=== PATIENT | female | born 1990 | race Caucasian/White ===

== ENCOUNTER 2016-10-30 16:46 | Emergency (ER) | payer SELFPAY ==
[~2016-10-30] VITALS: Ht 160 cm; Wt 100.2 kg
[2016-10-30 18:00] VITALS: BP 124/70
[2016-10-30 18:21] LABS: NEG OBC UR NEG; POS OBC UR POS
[2016-10-30 18:24] LABS: BILIRUBIN,URINE SMALL (NEG); GLUCOSE,URINE NEGATIVE (NEG); NITRITE,URINE NEGATIVE (NEG); PH,URINE 5.5; PROTEIN,URINE NEGATIVE (NEG-TRACE)
[2016-10-30 18:41] LABS: BACTERIA,URINE FEW /HPF (0-FEW); RBC,URINE 0 /HPF (0-2); SQUAMOUS EPITHELIAL CELL,UR MOD /LPF; WBC,URINE OCC /HPF (0-4)
--- NOTE | 2016-10-30 19:13 | RAD ---
PROCEDURE Ob ultrasound. HISTORY Pelvic pain. Cough and congestion. TECHNIQUE Transabdominal OB ultrasound was performed. COMPARISON None for this . FINDINGS Single live intrauterine is noted with heart tones of 152 beats per minute. Estimated gestational age by ultrasound is 14 weeks 1 day for an BREANNE by ultrasound of April 29, 2017. BREANNE by LMP is May 15, 2017. Biparietal diameter measures 2.53 centimeters, 14 weeks 3 days. Head circumference measures 9.37 centimeters, 14 weeks 2 days. Abdominal circumference measures 7.42 centimeters, 13 weeks 6 days. Femur length measures 1.41 centimeters, 14 weeks 1 day. [place]-rump length measures 8.28 centimeters, 14 weeks 2 days. HC/AC ratio is 1.26. weight cannot be calculated given early gestation. No implantation bleed is apparent. Full survey cannot be performed in this early 2nd trimester . Placenta is developing posteriorly. Right maternal ovary is not visualized. Left ovary is normal in appearance with color flow documented. IMPRESSION Single live intrauterine measures 14 weeks 1 day with heart tones of 152 beats per minute. Full survey closer to 20 weeks would be recommended. Electronically signed by: Jamshid Paiz MD (Oct 30, 2016 19:12:38)
--- NOTE | 2016-10-30 19:19 | PHYS DOC ---
Past Medical History Past Medical History: No Pertinent History Past Surgical History: Tonsillectomy Smoking: Less than 1pk/day Alcohol Use: None Drug Use: None Adult General Chief Complaint Chief Complaint: Congestion HPI HPI Patient is a 26 year old female who presents with URI symptoms for the last 4- 5 days. She reports that she is currently and estimates that she is 12- 13 weeks' gestation. She complains of cough and nasal congestion with subjective fever, sore throat, and shortness of breath. She also has had lower abdominal pain with radiation to the lower back. She denies any vaginal bleeding. She states concern for a missed because her sister had the same pain with a missed . She has not yet seen an OB doctor, but has had an ultrasound at approximately 6 weeks' gestation at [facility]. She smokes between 1/2-1 pack of cigarettes a day, down from almost 2 packs a day prior to her . She does not have a PCP. Review of Systems Review of Systems Constitutional: Reports subjective fever. Eyes: Denies change in visual acuity, redness, or eye pain. [] HENT: Denies ear pain. Reports nasal congestion and sore throat. Respiratory: Reports cough and shortness of breath. Cardiovascular: Denies chest pain, palpitations or edema. [] GI: Denies nausea, vomiting, bloody stools or diarrhea. Reports lower abdominal pain. : Denies dysuria, hematuria or urinary frequency. Denies vaginal bleeding. Musculoskeletal: Denies joint pain. Reports low-back pain radiating from the lower abdomen. Integument: Denies rash or skin lesions. [] Neurologic: Denies headache, focal weakness or sensory changes. [] Endocrine: Denies polyuria or polydipsia. [] Psych: Denies anxiety or depression. [] All systems reviewed and negative unless otherwise stated in the HPI. Allergies Allergies Allergies Coded Allergies Type Severity Reaction Last Updated Verified No Known Drug Allergies 10/30/16 No Physical Exam Physical Exam Constitutional: Well developed, well nourished, no acute distress, non-toxic appearance. [] HENT: Normocephalic, atraumatic, bilateral external ears normal, oropharynx moist, no oral exudates, nose normal. Bilateral TMs without erythema or bulging. There is no posterior pharyngeal erythema or tonsillar edema. Bilateral nasal turbinates are swollen and erythematous with purulent drainage. Eyes: PERRLA, EOMI, conjunctiva normal, no discharge. [] Neck: Normal range of motion, no tenderness, supple, no stridor. [] Cardiovascular: Heart rate regular rhythm, no murmur [] Lungs & Thorax: There is wheezing in the left lower lobe without rales or rhonchi. She is in no respiratory distress. Abdomen: Bowel sounds normal, soft, no tenderness, no masses, no pulsatile masses. [] Female : Normal external genitalia. There is a small amount of white discharge in the vagina. The cervical os is closed. There is no cervicitis or CMT. There is no adnexal mass or tenderness. Skin: Warm, dry, no erythema, no rash. [] Back: No tenderness, no CVA tenderness. [] Extremities: No tenderness, no cyanosis, no clubbing, ROM intact, no edema. [] Neurologic: Alert and oriented X 3, normal motor function, normal sensory function, no focal deficits noted. [] Psychologic: Affect normal, judgement normal, mood normal. [] Current Patient Data Vital Signs Vital Signs Date Time Temp Pulse Resp B/P Pulse Ox O2 Delivery O2 Flow Rate FiO2 10/30/16 18:00 97.7 90 18 97 Room Air 97.7 Lab Values Laboratory Tests Test 10/30/16 17:04 Urine Collection Type Unknown Urine Color Rohini Urine Clarity Turbid Urine pH 5.5 Urine Specific [place] >=1.030 Urine Protein Negativemg/dL (NEG-TRACE) Urine Glucose (UA) Negativemg/dL (NEG) Urine Ketones (Stick) Tracemg/dL (NEG) Urine Blood Negative (NEG) Urine Nitrite Negative (NEG) Urine Bilirubin Small (NEG) Urine Urobilinogen Dipstick 1.0mg/dL (0.2 mg/dL) Urine Leukocyte Esterase Moderate (NEG) Urine RBC 0/HPF (0-2) Urine WBC Occ/HPF (0-4) Urine Squamous Epithelial Cells Mod/LPF Urine Amorphous Sediment Present/HPF Urine Bacteria Few/HPF (0-FEW) Urine Mucus Mod/LPF Urine Test Positive (NEG) Microbiology 10/30/16 Wet Prep - Final, Complete WET PREP Final YEAST NONE SEEN TRICHOMONAS NONE SEEN CLUE CELLS NONE SEEN ALTERED ELSIE ALTERED ELSIE PRESENT SUGGESTIVE OF BACTERIAL VAGINOSIS WBCS MANY EKG EKG [] Radiology/Procedures Radiology/Procedures REASON: pelvic pain, 12 wks PROCEDURE: PREG MORE THAN OR EQ TO 14 WKS PROCEDURE Ob ultrasound. HISTORY Pelvic pain. Cough and congestion. TECHNIQUE Transabdominal OB ultrasound was performed. COMPARISON None for this . FINDINGS Single live intrauterine is noted with heart tones of 152 beats per minute. Estimated gestational age by ultrasound is 14 weeks 1 day for an BREANNE by ultrasound of April 29, 2017. BREANNE by LMP is May 15, 2017. Biparietal diameter measures 2.53 centimeters, 14 weeks 3 days. Head circumference measures 9.37 centimeters, 14 weeks 2 days. Abdominal circumference measures 7.42 centimeters, 13 weeks 6 days. Femur length measures 1.41 centimeters, 14 weeks 1 day. [place]-rump length measures 8.28 centimeters, 14 weeks 2 days. HC/AC ratio is 1.26. weight cannot be calculated given early gestation. No implantation bleed is apparent. Full survey cannot be performed in this early 2nd trimester . Placenta is developing posteriorly. Right maternal ovary is not visualized. Left ovary is normal in appearance with color flow documented. IMPRESSION Single live intrauterine measures 14 weeks 1 day with heart tones of 152 beats per minute. Full survey closer to 20 weeks would be recommended. Course & Med Decision Making Course & Med Decision Making Pertinent Labs and Imaging studies reviewed. (See chart for details) Patient is 26-year-old female presents with upper respiratory symptoms and pelvic pain while . On exam, she has mild wheezing in the left lower lobe without rales or rhonchi. Abdomen is soft and nonsurgical without tenderness. There is white discharge in the vagina without cervicitis or CMT. The os is closed. There is no tenderness on bimanual examination. Ultrasound shows single intrauterine gestational 14 weeks without any acute abnormalities. Urine is negative for infection. Wet mount is positive for bacterial vaginosis. She denies any concern for STDs and is therefore not treated empirically while in the emergency department. She is discharged home with prescription for albuterol inhaler and Flagyl. She is given contact information for OB to establish care. Return precautions were discussed. She verbalizes understanding and agrees with plan. Dragon Disclaimer Dragon Disclaimer This electronic medical record was generated, in whole or in part, using a voice recognition dictation system. Departure Departure Impression: Primary Impression: Bronchitis Additional Impressions: Bacterial vaginosis Intrauterine Disposition: HOME, SELF-CARE Condition: STABLE Referrals: HAZEL WILCOX MD Patient Instructions: Acute Bronchitis, [id number], Bacterial Vaginosis, Easy -to-Read, - Second Trimester, [id number], - Smoking Additional Instructions: Please complete all of the prescribed antibiotics for your vaginal infection. Please use the prescribed inhaler as needed for cough or shortness of breath. Do not use more often than directed. Please follow-up with your OB doctor as soon as possible for routine care. Return to the emergency department if you have any new or concerning symptoms. Scripts Metronidazole (Flagyl)500 Mg Tablet1 Tab PO BID #14 TAB Prov:TAVO VICENTE 10/30/16 Albuterol Sulfate (Proair Hfa Inhaler)8.5 Gm Hfa.aer.ad1 Puff INH PRN Q6HRS PRN SHORTNESS OF BREATH #1 INHALER Prov:TAVO VICENTE 10/30/16 Problem Qualifiers TAVO VICENTE Oct 30, 2016 19:19
[2016-10-30] MEDS ORDERED: PROAIR HFA8.5 GM INH (20:08)
[2016-10-30] MEDS ORDERED: METR500T PO (20:08)
== END 2016-10-30 20:22 | disposition home or self-care (01) ==
LOC: ER 16:46
DX: O99.511 Diseases of the respiratory system complicating pregnancy, first trimester (principal); J40 Bronchitis, not specified as acute or chronic; O23.41 Unspecified infection of urinary tract in pregnancy, first trimester; N76.0 Acute vaginitis; O99.331 Smoking (tobacco) complicating pregnancy, first trimester; Z3A.12 12 weeks gestation of pregnancy
CPT/HCPCS: 76805; 81001; 81025; 87086; 99285; Q0111; 87491; 87591

== ENCOUNTER → 2017-02-09 | Outpatient (CLI) | payer OTHER ==
[2016-11-04 19:41] VITALS: BP 109/68
[~2017-02-09] MED LIST: METR500T PO; PROAIR HFA8.5 GM INH
--- NOTE | 2017-02-09 14:44 | KCIC ---
PROCEDURE Obstetric ultrasound, greater than 14 weeks. HISTORY Supervision of . TECHNIQUE Real-time ultrasound imaging of the gravid uterus is performed transabdominally. COMPARISON Obstetric ultrasound, October 30, 2016. FINDINGS Study is technically difficult due to patient body habitus. Patient having hot spells end profusely sweating. Four-chamber heart, kidneys, and brain are not diagnostically visualized. A single intrauterine fetus is seen in transverse position. heart rate is 139 beats per minute. BPD is 7.4 cm which equals 29 weeks 4 days. HC is 26.7 cm which equals 29 weeks 0 days. AC is 25.7 cm which equals 29 weeks 6 days. FL is 5.6 cm which equals 29 weeks 3 days. Average gestational age by ultrasound is 29 weeks 3 days with an EDC of April 24, 2017. EDC calculated by the prior ultrasound was May 15, 2017. Estimated weight is 1422 +/- 210 grams. A three-vessel cord isidentified. stomach and urinary bladder are identified. Cord insertion site is unremarkable. The visualizedfetal spine is morphologically normal in appearance. Four extremities are identified. Amniotic fluid volume is subjectively normal. Cervical length is 4.8 cm. A posteriorplacenta is seen. No placenta previa and no placenta abruptio is identified. The maternal ovaries are not visualized. IMPRESSION 1. Single live intrauterine , estimated sonographic gestational age 29 weeks and 3 days. 2. Greater than expected interval growth. Estimated weight percentile is 97. 3. No obvious anatomic abnormality. Please note limitations above. Electronically signed by: Onur Bradshaw MD (Feb 09, 2017 14:43:17)
== END | disposition home or self-care (01) ==
LOC: KCIC US 10:05
PROVIDERS: ATTEND Obstetrics & Gynecology
DX: O99.211 Obesity complicating pregnancy, first trimester (principal)
CPT/HCPCS: 76805

== ENCOUNTER 2017-03-25 15:15 | Observation (INO) | payer OTHER ==
[2016-11-04 19:41] VITALS: BP 109/68
[~2017-03-25] VITALS: Ht 161.3 cm; Wt 107.5 kg
[2017-03-25] MEDS ORDERED: TERBUTALINE 1 MG/ML VIAL. SQ PRN (18:15)
[2017-03-25] MEDS ORDERED: IV RINGERS,LACTATED 1000ML 1,000 ML IV ONE (18:15)
== END 2017-03-25 19:57 | disposition home or self-care (01) ==
LOC: 3 SO LND 15:15
PROVIDERS: ADMIT Family Medicine; ATTEND Family Medicine
DX: O36.8130 Decreased fetal movements, third trimester, not applicable or unspecified (principal); O26.893 Other specified pregnancy related conditions, third trimester; M54.9 Dorsalgia, unspecified; R10.2 Pelvic and perineal pain; Z3A.35 35 weeks gestation of pregnancy
CPT/HCPCS: 96360; G0378; G0379; J7120

== ENCOUNTER → 2017-04-05 | Outpatient (CLI) | payer OTHER ==
[2016-11-04 19:41] VITALS: BP 109/68
--- NOTE | 2017-04-05 13:27 | RAD ---
OB ultrasound greater than 14 weeks 04/05/2017 Clinical History: Large for dates. Assess size.. Technique: A real time ultrasound examination of the gravid uterus was performed. Multiple images were obtained. Findings: Comparison studies are dated 10/30/2016 and 02/09/2017. There is a single living IUP. The fetus is in a cephalicposition. cardiac and somatic activity is seen. The heart rate is 140 beats permit minute. The placenta is posterior/fundal. No focal abnormality of the placenta is seen. The amniotic fluid level is within normal limits. The DANI measures 21.6 cm.. Neither maternal ovary is visualized. No adnexal mass is seen. The maternal cervix is not well visualized due to the position of the head. The following measurements were obtained: BPD 9.48 cm 38 weeks 5 days HC 34.32 cm 39 weeks 4 days AC 37.96 cm 41 weeks 6 days FL 7.80 cm 40 weeks 0 days The estimated gestational age by ultrasound is 40 weeks 0 days plus or minus a standard deviation of 3 weeks. The estimated date of delivery of by ultrasound on today's study is 04/05/2017. The estimated weight is 4196 g +/- 621-g (9 lbs. 4 oz.). Since the previous examination there has been interval growth. The fetus remains large for dates. No abnormality is definitely seen. Impression: Single living IUP with an estimated gestational age by ultrasound on today's study of 40 weeks 0 days +/- 16 deviation of 3 weeks. Since the previous examination there has been interval growth. The fetus remains large for dates. The estimated weight is 419 6 g +/- 6 121 g..
== END | disposition home or self-care (01) ==
LOC: US 12:07
PROVIDERS: ATTEND Family Medicine
DX: Z34.83 Encounter for supervision of other normal pregnancy, third trimester (principal); Z3A.40 40 weeks gestation of pregnancy
CPT/HCPCS: 76805

== ENCOUNTER 2017-04-09 15:40 | Observation (INO) | payer OTHER ==
[2016-11-04 19:41] VITALS: BP 109/68
[2017-04-09] MEDS ORDERED: IV RINGERS,LACTATED 1000ML 1,000 ML IV SCH (16:38)
[2017-04-09 16:55] LABS: BILIRUBIN,URINE SMALL (NEG); GLUCOSE,URINE NEGATIVE (NEG); NITRITE,URINE NEGATIVE (NEG); PROTEIN,URINE NEGATIVE (NEG-TRACE)
== END 2017-04-09 18:30 | disposition home or self-care (01) ==
LOC: 3 SO LND 15:40
PROVIDERS: ADMIT Family Medicine; ATTEND Family Medicine
DX: O26.893 Other specified pregnancy related conditions, third trimester (principal); R10.9 Unspecified abdominal pain; M54.9 Dorsalgia, unspecified; Z3A.37 37 weeks gestation of pregnancy
CPT/HCPCS: 81003; 96360; G0378; G0379; J7120

== ENCOUNTER 2017-04-21 18:54 | Inpatient (IN) | payer OTHER ==
[~2017-04-21] VITALS: Ht 160 cm; Wt 108.9 kg
[2017-04-21] MEDS ORDERED: OXYTOCIN 30 UNIT/500 ML PREMIX 500 ML IV PRN ×2 (19:15)
[2017-04-21] MEDS ORDERED: fentaNYL PF VIAL 100 MCG/2 ML VIAL IV PRN (19:15)
[2017-04-21] MEDS ORDERED: LIDOCAINE 1% PF 30 ML VIAL. INJ PRN (19:15)
[2017-04-21] MEDS ORDERED: ONDANSETRON PF 4 MG/2 ML VIAL. IV PRN (19:15)
[2017-04-21] MEDS ORDERED: BUTORPHANOL 2 MG/ML VIAL. IV PRN (19:15)
[2017-04-21] MEDS ORDERED: IBUPROFEN 600 MG TABLET. PO PRN (19:15)
[2017-04-21] MEDS ORDERED: MAG HYDROX/ALUMINUM HYD/SIMETH 30 ML ORAL.SUSP PO PRN (19:15)
[2017-04-21] MEDS ORDERED: 0.9 % SODIUM CHLORIDE 10 ML DISP.SYRIN. IV PRN (19:15)
[2017-04-21] MEDS ORDERED: ACETAMINOPHEN 325 MG TABLET. PO PRN (19:15)
[2017-04-21] MEDS ORDERED: DINOPROSTONE 10 MG SUPP.VAG VG ONE (19:15)
[2017-04-21] MEDS ORDERED: TERBUTALINE 1 MG/ML VIAL. SQ PRN (19:15)
[2017-04-21] MEDS ORDERED: AMPICILLIN SODIUM 2 GM in IV NORMAL SALINE 100ML 100 ML IV ONE (19:30)
[2017-04-21 20:52] LABS: HEMOGLOBIN 10.4 g/dL (12.0-15.5); RED BLOOD COUNT 3.47 x10^6/uL (3.50-5.40); RED CELL DISTRIBUTION WIDTH 13.5 % (11.5-14.5); WHITE BLOOD COUNT 11.1 x10^3/uL (4.0-11.0)
[2017-04-21] MEDS ORDERED: ZOLPIDEM 5 MG TABLET. PO PRN (23:00)
[2017-04-21] MEDS ORDERED: AMPICILLIN SODIUM 1 GM in IV NORMAL SALINE 50ML 50 ML IV SCH (23:30)
[2017-04-22] MEDS: IV RINGERS,LACTATED 1000ML 1,000 ML IV SCH ×2 (08:20→13:50)
[2017-04-22] MEDS ORDERED: METF500T4 PO (09:41)
[2017-04-22] MEDS ORDERED: PEDI1TAB6 PO (09:41)
[2017-04-22 10:51] LABS: BILIRUBIN,URINE SMALL (NEG); GLUCOSE,URINE NEGATIVE (NEG); NITRITE,URINE NEGATIVE (NEG); PH,URINE 5.5; PROTEIN,URINE NEGATIVE (NEG-TRACE)
[2017-04-22 11:07] LABS: BACTERIA,URINE MANY /HPF (0-FEW); SQUAMOUS EPITHELIAL CELL,UR MANY /LPF
[2017-04-22] MEDS ORDERED: ROPIVacaine 0.2% IN 0.9%NACL PF 40 MG/20 ML DISP.SYRIN. ONE (13:06)
[2017-04-22] MEDS ORDERED: BUPIVACAINE MPF 0.25% 10 ML VIAL. EPI PRN (13:45)
[2017-04-22] MEDS ORDERED: diphenhydrAMINE 50 MG/ML VIAL IV PRN ×2 (13:45)
[2017-04-22] MEDS ORDERED: PHENYLEPHRINE in 0.9% NACL PF 1 MG/10 ML DISP.SYRIN. IV PRN (13:45)
[2017-04-22] MEDS ORDERED: L&D EPIDURAL CASSETTE 100 ML EP PRN (13:45)
[2017-04-22] MEDS ORDERED: fentaNYL PF VIAL 100 MCG/2 ML VIAL EPI PRN (13:45)
[2017-04-22] MEDS ORDERED: ePHEDrine PF IN SALINE 50 MG/5 ML DISP.SYRIN IV PRN (13:45)
[2017-04-22] MEDS ORDERED: ONDANSETRON PF 4 MG/2 ML VIAL. IV PRN (13:45)
[2017-04-22] MEDS ORDERED: ROPIVacaine 0.2% IN 0.9%NACL PF 40 MG/20 ML DISP.SYRIN. EPI PRN (13:45)
[2017-04-22] MEDS ORDERED: IV RINGERS,LACTATED 500ML 500 ML IV PRN (13:45)
[2017-04-22] MEDS ORDERED: NALOXONE 0.4 MG/ML VIAL. IV PRN (13:45)
[2017-04-22] MEDS ORDERED: PROCHLORPERAZINE 10 MG/2 ML VIAL. IV PRN (13:45)
[2017-04-22] MEDS ORDERED: IV RINGERS,LACTATED 1000ML 1,000 ML IV SCH (14:00)
[2017-04-22] MEDS ORDERED: MAG HYDROX/ALUMINUM HYD/SIMETH 30 ML ORAL.SUSP PO PRN (16:30)
[2017-04-22] MEDS ORDERED: 0.9 % SODIUM CHLORIDE 10 ML DISP.SYRIN. IV PRN (16:30)
[2017-04-22] MEDS ORDERED: PHENYLEPH/MINERAL OIL/PETROLAT RECTAL OINTMENT 28GM TUBE. RC PRN (16:30)
[2017-04-22] MEDS ORDERED: ZOLPIDEM 5 MG TABLET. PO PRN (16:30)
[2017-04-22] MEDS ORDERED: HYDROcodone/APAP 5/325MG 1 TAB TABLET PO PRN ×2 (16:30)
[2017-04-22] MEDS ORDERED: MAGNESIUM HYDROXIDE 2,400 MG/30 ML ORAL.SUSP. PO PRN (16:30)
[2017-04-22] MEDS ORDERED: OXYTOCIN 30 UNIT/500 ML PREMIX 500 ML IV PRN (16:30)
[2017-04-22] MEDS ORDERED: SIMETHICONE 80 MG TAB.CHEW PO PRN (16:30)
[2017-04-22] MEDS ORDERED: diphenhydrAMINE HCL 25 MG CAPSULE PO PRN (16:30)
[2017-04-22] MEDS ORDERED: ACETAMINOPHEN 325 MG TABLET. PO PRN (16:30)
[2017-04-22] MEDS ORDERED: BENZOCAINE 20% TOPICAL AEROSOL SPRAY 57GM CAN. TP PRN (16:30)
[2017-04-22] MEDS ORDERED: HYDROCORTISONE 1% TOPICAL OINTMENT 30GM TUBE. TP PRN (16:30)
--- NOTE | 2017-04-22 18:21 | PDOC1 ---
OB - History Hx of Present Care: Good Care Ultrasounds: Normal mid trimester US Obstetrical Complications: Gestational Diabetes Other Concerns: macrosomia Past Family/Social History * Past Medical, Surgical, Family and Obstetric Histories reviewed from chart. Blood Type: O+ Rubella: Immune RPR/VDRL: Negative GBS Status: Positive HBsAG: Negative OB - Chief Complaint & HPI Date of Admission: Date of Admission: Apr 21, 2017 at 19:04 Chief Complaint/History : 2 Para: 1 EDC: Apr 29, 2017 Reason for admission: induction of labor Indication for induction: other (suspected macrosomia and gestational diabetes) Admission Nurse Assessment Rev: Yes Problems: OB - Admission Exam Physical Exam Vitals: VS - Last 72 Hours, by Label Date Time Temp Pulse Resp B/P (MAP) Pulse Ox O2 Delivery O2 Flow Rate FiO2 04/22/17 13:58 20 100 NonRebreather Mask HEENT: Normal, Nasal Mucosa Normal, Oropharynx Normal, Moist Membranes, Fontanelles Normal Lungs: Clear, Equal Abdomen: Gravid Extremities: Normal Pulses, No tenderness or swelling Reflexes: Normal Cervical Dilatation: 2cm Effacement: 50% Station: -3 Membranes: Intact Amniotic Fluid: Clear Heart Rate: Normal Accelerations: Accelerations Present Decelerations: No decelerations Short Term Variability: Present Weatherization Installer Variability: Moderate Contractions on Admission: < 5 Minutes Apart Intensity: SYLVIA Hoskins MD Apr 22, 2017 18:21
--- NOTE | 2017-04-22 18:26 | PDOC ---
VAGINAL DELIVERY DATE DATE: 04/22/17 TIME: 18:21 : 2 Para: 1 EDC: Apr 29, 2017 VAGINAL DELIVERY: VTX VACCUM ASSISTED: No PLACENTA: Spontaneous SEX: Male WEIGHT Weight 8'10" Nuchal Cord: No Amniotic Fluid: Clear PAIN: Epidural EPISIOTOMY: No REPAIRED WITH First-degree perineal sutured with 3-0 chromic in a running locking fashion. EBL 250 cc CONDITION stable ADDITIONAL NOTES Mother admitted for Cervidil induction at 39 weeks with suspected macrosomic and evidence of gestational diabetes due to high hemoglobin A1c of 6.1. Patient proceeded into labor after Cervidil ripening and Pitocin augmentation. Artificial rupture membranes was done with clear fluid noted mother proceeded to pressure 4 cm at which time she received epidural anesthesia. After epidural anesthesia patient had an extended D cell due to low blood pressures and hyperstimulation. This resolved with fluids oxygen and left side and discontinuation of Pitocin patient proceeded to complete delivering a viable male infant without complications with Apgars of 8,9,9 head was suctioned upon delivery there was spontaneous cry for delivery of body at 30 seconds cord was clamped and transected. Infant was handed off placenta was then delivered intact with three-vessel cord uterus was firm Pitocin palpation first degree midline. Laceration was sutured with 3-0 chromic in a running locking fashion there was good hemostasis. Signs of Intrauterine Infectio: None Shoulder Dystocia: No DIAGNOSIS Term infant delivered. Problems: (1) Gestational diabetes Problem Qualifiers (1) Gestational diabetes: Gestational diabetes mellitus control: diet-controlled Trimester: third trimester Qualified Codes: O24.410 - Gestational diabetes mellitus in , diet controlled SYLVIA COOPER MD Apr 22, 2017 18:26
[2017-04-22] MEDS: metFORMIN 500 MG TABLET PO SCH (18:50)
[2017-04-22 20:30] VITALS: BP 131/81
[2017-04-22] MEDS: IBUPROFEN 800 MG TABLET. PO SCH (20:48)
[2017-04-22 21:30] VITALS: BP 140/88
[2017-04-23 04:32] LABS: BASO # 0.1 x10^3/uL (0.0-0.2); BASO % 1 % (0-3); EOS % 1 % (0-3); HEMATOCRIT 28.1 % (36.0-47.0); HEMOGLOBIN 9.5 g/dL (12.0-15.5); LYMPH # 1.5 x10^3/uL (1.0-4.8); LYMPH % 12 % (24-48); MEAN CORPUSCULAR HEMOGLOBIN 29 pg (25-35); MEAN CORPUSCULAR HGB CONC 34 g/dL (31-37); MEAN CORPUSCULAR VOLUME 86 fL (79-100); MONO % 10 % (0-9); NEUT % 76 % (31-73); PLATELET COUNT 142 x10^3/uL (140-400); RED BLOOD COUNT 3.27 x10^6/uL (3.50-5.40); RED CELL DISTRIBUTION WIDTH 13.5 % (11.5-14.5); WHITE BLOOD COUNT 12.1 x10^3/uL (4.0-11.0)
[2017-04-23 06:18] LABS: RPR REFLEX Non Reactive (Non Reactive)
[2017-04-23] MEDS: IBUPROFEN 800 MG TABLET. PO SCH (06:23)
[2017-04-23 06:30] VITALS: BP 114/78
[2017-04-23] MEDS: FERROUS SULFATE 325 MG TABLET. PO SCH ×2 (09:12→17:44)
[2017-04-23] MEDS: metFORMIN 500 MG TABLET PO SCH ×2 (09:12→17:44)
[2017-04-23 09:15] VITALS: BP 118/69
[2017-04-23] MEDS ORDERED: IOHEXOL 300 MG/ML 75 ML VIAL IV ONE (12:00)
[2017-04-23] MEDS ORDERED: IOHEXOL 240 MG/ML 50ML VIAL. PO ONE (12:00)
[2017-04-23] MEDS ORDERED: CONTRAST GIVEN MC PRN (12:00)
[2017-04-23 12:21] LABS: CREATININE 0.5 mg/dL (0.6-1.0); GFR 150.3
--- NOTE | 2017-04-23 12:49 | PDOC ---
PROGRESS NOTES Subjective Subjective Patient complaining of back pain chest pain and shortness of breath 1 day post delivery. Nursing noted large mass consistent with uterine fundus but abnormally located above the umbilicus and to the right. Patient's O2 saturations on room air at 94% without respiratory distress at this time. Objective Objective Vital Signs Date Time Temp Pulse Resp B/P (MAP) Pulse Ox O2 Delivery O2 Flow Rate FiO2 04/23/17 09:15 97.7 76 118/69 (85) 97.7 04/23/17 08:50 Room Air 04/23/17 06:30 18 94 Physical Exam Abdomen: Normal bowel sounds, Other (enlarge somewhat tender uterus.) Heart: Regular rate Extremities: No edema General: Alert Lungs: Clear to auscultation Assessment Assessment day #1 Relative hypoxemia Gestational diabetes Abdominal mass without uterine vein thrombosis Rule out pulmonary embolus postdelivery Plan Plan of Care Obtain CT abdomen and pelvis. Proceed with VQ scan. Proceed with venous Doppler. Continue supportive care. Comment Review of Relevant I have reviewed the following items pao (where applicable) has been applied. Labs Laboratory Tests Test 04/21/17 20:40 04/22/17 09:20 04/23/17 04:25 White Blood Count 11.1 x10^3/uL (4.0-11.0) 12.1 x10^3/uL (4.0-11.0) Red Blood Count 3.47 x10^6/uL (3.50-5.40) 3.27 x10^6/uL (3.50-5.40) Hemoglobin 10.4 g/dL (12.0-15.5) 9.5 g/dL (12.0-15.5) Hematocrit 30.0 % (36.0-47.0) 28.1 % (36.0-47.0) Mean Corpuscular Volume 86 fL (79-100) 86 fL (79-100) Mean Corpuscular Hemoglobin 30 pg (25-35) 29 pg (25-35) Mean Corpuscular Hemoglobin Concent 35 g/dL (31-37) 34 g/dL (31-37) Red Cell Distribution Width 13.5 % (11.5-14.5) 13.5 % (11.5-14.5) Platelet Count 185 x10^3/uL (140-400) 142 x10^3/uL (140-400) Glucose Level 95 mg/dL (70-99) RPR Titer Additional Testing Non reactive (Non Reactive) Urine Collection Type Unknown Urine Color Rohini Urine Clarity Cloudy Urine pH 5.5 Urine Specific [place] >=1.030 Urine Protein Negative mg/dL (NEG-TRACE) Urine Glucose (UA) Negative mg/dL (NEG) Urine Ketones (Stick) Negative mg/dL (NEG) Urine Blood Small (NEG) Urine Nitrite Negative (NEG) Urine Bilirubin Small (NEG) Urine Urobilinogen Dipstick 1.0 mg/dL (0.2 mg/dL) Urine Leukocyte Esterase Moderate (NEG) Urine RBC 3-5 /HPF (0-2) Urine WBC 11-20 /HPF (0-4) Urine Squamous Epithelial Cells Many /LPF Urine Amorphous Sediment Present /HPF Urine Bacteria Many /HPF (0-FEW) Urine Mucus Marked /LPF Neutrophils (%) (Auto) 76 % (31-73) Lymphocytes (%) (Auto) 12 % (24-48) Monocytes (%) (Auto) 10 % (0-9) Eosinophils (%) (Auto) 1 % (0-3) Basophils (%) (Auto) 1 % (0-3) Neutrophils # (Auto) 9.2 x10^3uL (1.8-7.7) Lymphocytes # (Auto) 1.5 x10^3/uL (1.0-4.8) Monocytes # (Auto) 1.2 x10^3/uL (0.0-1.1) Eosinophils # (Auto) 0.1 x10^3/uL (0.0-0.7) Basophils # (Auto) 0.1 x10^3/uL (0.0-0.2) Creatinine 0.5 mg/dL (0.6-1.0) Estimated GFR (Cockcroft-Gault) 150.3 Laboratory Tests Test 04/23/17 04:25 White Blood Count 12.1 x10^3/uL (4.0-11.0) Red Blood Count 3.27 x10^6/uL (3.50-5.40) Hemoglobin 9.5 g/dL (12.0-15.5) Hematocrit 28.1 % (36.0-47.0) Mean Corpuscular Volume 86 fL (79-100) Mean Corpuscular Hemoglobin 29 pg (25-35) Mean Corpuscular Hemoglobin Concent 34 g/dL (31-37) Red Cell Distribution Width 13.5 % (11.5-14.5) Platelet Count 142 x10^3/uL (140-400) Neutrophils (%) (Auto) 76 % (31-73) Lymphocytes (%) (Auto) 12 % (24-48) Monocytes (%) (Auto) 10 % (0-9) Eosinophils (%) (Auto) 1 % (0-3) Basophils (%) (Auto) 1 % (0-3) Neutrophils # (Auto) 9.2 x10^3uL (1.8-7.7) Lymphocytes # (Auto) 1.5 x10^3/uL (1.0-4.8) Monocytes # (Auto) 1.2 x10^3/uL (0.0-1.1) Eosinophils # (Auto) 0.1 x10^3/uL (0.0-0.7) Basophils # (Auto) 0.1 x10^3/uL (0.0-0.2) Creatinine 0.5 mg/dL (0.6-1.0) Estimated GFR (Cockcroft-Gault) 150.3 Medications Current Medications Sodium Chloride (Normal Saline Flush) 3 ml QSHIFT PRN IV AFTER MEDS AND BLOOD DRAWS Last administered on 04/22/17 08:21; Start 04/21/17 at 19:15 Ringer's Solution 1,000 ml @ 125 mls/hr Q8H IV Last administered on 04/22/17 13:50; Start 04/21/17 at 19:14 Butorphanol Tartrate (Stadol) 2 mg PRN Q1HR PRN IV Severe labor pain; Start at 19:15 Fentanyl Citrate (Fentanyl 2ml Vial) 100 mcg PRN Q20MIN PRN IV Labor pain; Start 04/21/17 at 19:15 Acetaminophen (Tylenol) 650 mg PRN Q6HRS PRN PO MILD PAIN / TEMP; Start at 19:15; Stop 04/22/17 at 16:27; Status DC Ondansetron HCl (Zofran) 4 mg PRN Q4HRS PRN IV NAUSEA/VOMITING; Start 04/21/17 at 19:15; Stop 04/22/17 at 16:28; Status DC Al Hydroxide/Mg Hydroxide (Mylanta Plus Xs) 30 ml PRN Q4HRS PRN PO HEARTBURN / GAS; Start 04/21/17 at 19:15; Stop 04/22/17 at 16:28; Status DC Terbutaline Sulfate (Brethine) 0.25 mg 1X PRN PRN SQ SEE COMMENTS; Start at 19:15; Stop 04/22/17 at 19:14; Status DC Lidocaine HCl 30 ml 1X PRN PRN INJ SEE COMMENTS; Start 04/21/17 at 19:15; Stop 04/23/17 at 19:14 Ampicillin Sodium 2 gm/Sodium Chloride 100 ml @ 200 mls/hr 1X ONCE IV Last administered on 04/22/17 08:51; Start 04/21/17 at 19:30; Stop 04/21/17 at 19:59 ; Status DC Ampicillin Sodium 1 gm/Sodium Chloride 50 ml @ 100 mls/hr Q4H IV Last administered on 04/22/17 13:03; Start 04/21/17 at 23:30 Oxytocin/Sodium Chloride 500 ml @ 0 mls/hr CONT PRN IV SEE I/O RECORD Last administered on 04/22/17 08:51; Start 04/21/17 at 19:15 Oxytocin/Sodium Chloride 500 ml @ 0 mls/hr CONT PRN PRN IV Post delivery bleeding; Start 04/21/17 at 19:15 Ibuprofen (Motrin) 600 mg PRN Q6HRS PRN PO PAIN; Start 04/21/17 at 19:15 Dinoprostone (Cervidil) 10 mg 1X ONCE VG Last administered on 04/21/17 20:21 ; Start 04/21/17 at 19:15; Stop 04/21/17 at 19:22; Status DC Zolpidem Tartrate (Ambien) 5 mg PRN QHS PRN PO INSOMNIA Last administered on 00:01; Start 04/21/17 at 23:00; Stop 04/22/17 at 16:28; Status DC Ropivacaine 40 mg STK-MED ONCE .ROUTE ; Start 04/22/17 at 13:06; Stop 04/22/17 at 13:07; Status DC Ringer's Solution 1,000 ml @ 1,000 mls/hr Q1H IV ; Start 04/22/17 at 14:00; Stop 04/22/17 at 14:59; Status DC Ringer's Solution 500 ml @ 500 mls/hr 1X PRN PRN IV HYPOTENSION; Start at 13:45; Stop 04/23/17 at 13:44 Ephedrine Sulfate 10 mg PRN Q2MIN PRN IV IF SBP<90; Start 04/22/17 at 13:45 Phenylephrine HCl 0.05 mg PRN Q2MIN PRN IV SBP less than 90; Start 04/22/17 at 13:45 Naloxone HCl (Narcan) 0.04 mg PRN Q1MIN PRN IV SEE COMMENTS; Start 04/22/17 at 13:45 Fentanyl Citrate (Fentanyl 2ml Vial) 100 mcg PRN 1X PRN EPI FOR ANESTHESIA; Start 04/22/17 at 13:45; Stop 04/23/17 at 13:44 Bupivacaine HCl (Sensorcaine-Mpf 0.25%) 10 ml PRN 1X PRN EPI FOR ANESTHESIA; Start 04/22/17 at 13:45; Stop 04/23/17 at 13:44 Ropivacaine/ Fentanyl/NS 100 ml @ 12 mls/hr CONT PRN EP PAIN Last administered on 04/22/17 13:58; Start 04/22/17 at 13:45 Ondansetron HCl (Zofran) 4 mg PRN Q6HRS PRN IV NAUSEA/VOMITING; Start 04/22/17 at 13:45 Prochlorperazine Edisylate (Compazine) 5 mg PRN Q6HRS PRN IV NAUSEA/VOMITING; Start 04/22/17 at 13:45 Diphenhydramine HCl (Benadryl) 12.5 mg PRN Q2HR PRN IV ITCHING; Start 04/22/17 at 13:45; Stop 04/22/17 at 16:28; Status DC Diphenhydramine HCl (Benadryl) 12.5 mg PRN Q2HR PRN IV ITCHING; Start 04/22/17 at 13:45 Ropivacaine 40 mg PRN 1X PRN EPI SEE COMMENTS Last administered on 04/22/17 13 :56; Start 04/22/17 at 13:45; Stop 04/22/17 at 13:58; Status DC Sodium Chloride (Normal Saline Flush) 10 ml QSHIFT PRN IV AFTER MEDS AND BLOOD DRAWS; Start 04/22/17 at 16:30 Oxytocin/Sodium Chloride 500 ml @ 62.5 mls/hr CONT PRN IV SEE I/O RECORD; Start 04/22/17 at 16:30; Stop 04/23/17 at 00:29; Status DC Acetaminophen (Tylenol) 650 mg PRN Q6HRS PRN PO MILD PAIN / TEMP; Start at 16:30 Ibuprofen (Motrin) 800 mg Q8HRS PO Last administered on 04/23/17 06:23; Start 04/22/17 at 22:00 Magnesium Hydroxide (Milk Of Magnesia) 2,400 mg PRN DAILY PRN PO CONSTIPATION; Start 04/22/17 at 16:30 Al Hydroxide/Mg Hydroxide (Mylanta Plus Xs) 30 ml PRN Q4HRS PRN PO HEARTBURN / GAS Last administered on 04/22/17 21:49; Start 04/22/17 at 16:30 Simethicone (Gas-X) 80 mg PRN AFTMEALHC PRN PO GAS / BLOATING; Start 04/22/17 at 16:30 Diphenhydramine HCl (Benadryl) 25 mg PRN Q6HRS PRN PO ITCHING; Start 04/22/17 at 16:30 Benzocaine (Americaine) 1 spray PRN QID PRN TP TOPICAL PAIN; Start 04/22/17 at 16:30 Phenyleph/Shark Oil/Min Oil/Petrol (Preparation H) 1 rekha PRN QID PRN RC RECTAL PAIN; Start 04/22/17 at 16:30 Hydrocortisone (Cortaid) 1 rekha PRN QID PRN TP PERINEAL PAIN; Start 04/22/17 at 16:30 Ferrous Sulfate (Feosol) 325 mg BIDWMEALS PO Last administered on 04/23/17 09: 12; Start 04/23/17 at 08:00 Zolpidem Tartrate (Ambien) 5 mg PRN QHS PRN PO INSOMNIA, MAY REPEAT X1; Start 04/22/17 at 16:30 Info (Do NOT chart on this placeholder) 1 ea 1X PRN PRN MC SEE COMMENTS; Start 04/22/17 at 16:30 Acetaminophen/ Hydrocodone Bitart (Lortab 5/325) 1 tab PRN Q4HRS PRN PO MILD PAIN Last administered on 04/22/17 21:49; Start 04/22/17 at 16:30 Acetaminophen/ Hydrocodone Bitart (Lortab 5/325) 2 tab PRN Q4HRS PRN PO MODERATE PAIN, SEVERE PAIN; Start 04/22/17 at 16:30 Metformin HCl (Glucophage) 500 mg BIDWMEALS PO Last administered on 04/23/17 09:12; Start 04/22/17 at 17:00 Iohexol (Omnipaque 240 Mg/ml) 30 ml 1X ONCE PO ; Start 04/23/17 at 12:00; Stop 04/23/17 at 12:01; Status DC Iohexol (Omnipaque 300 Mg/ml) 75 ml 1X ONCE IV ; Start 04/23/17 at 12:00; Stop 04/23/17 at 12:01; Status DC Info (Do NOT chart on this entry -- for MONITORING) 1 each PRN DAILY PRN MC SEE COMMENTS; Start 04/23/17 at 12:00; Stop 04/25/17 at 11:59 Active Scripts Active Reported Flintstones (Pediatric Multivit Comb No.42) 1 Each Tab.chew 1 Each PO Metformin Hcl 500 Mg Tablet 500 Mg PO BIDWMEALS Vitals/I & O Vital Sign - Last 24 Hours 04/22/17 04/22/17 04/22/17 04/22/17 13:58 20:30 21:30 21:49 Temp 98.3 98.0 98.3 98.0 Pulse 78 73 Resp 20 18 20 18 B/P (MAP) 131/81 (98) 140/88 (105) Pulse Ox 100 94 98 O2 Delivery NonRebreather Mask Room Air Room Air Room Air 04/22/17 04/23/17 04/23/17 04/23/17 22:50 06:30 08:50 09:15 Temp 98.1 97.7 98.1 97.7 Pulse 67 76 Resp 18 18 B/P (MAP) 114/78 (90) 118/69 (85) Pulse Ox 94 O2 Delivery Room Air Room Air Room Air SYLVIA COOPER MD Apr 23, 2017 12:49
[2017-04-23 13:35] VITALS: BP 98/61
--- NOTE | 2017-04-23 15:16 | RAD ---
Indication: Shortness of air and low oxygen saturation. The patient is 2 days post . Axial imaging through the chest was performed after the administration of intravenous contrast and utilizing the CT angiography protocol. Multiplanar, 3-D and MIP reformations were also performed. Evaluation of the pulmonary arterial system is without evidence of thromboembolism. No filling defects are seen. The thoracic aorta is normal caliber. No dissection is identified. The heart size is normal. There does appear to be a small to moderate pericardial effusion. No pleural effusion is identified. Parenchymal evaluation does show a small 5 mm indeterminate nodule in the anterior right upper lobe, image 57. No other nodules are seen. No infiltrates are detected. Impression: 1. No evidence of pulmonary embolism or thoracic aortic dissection. 2. Pericardial effusion. 3. 5 mm right upper lobe nodule. PQRS Compliance Statement: One or more of the following individualized dose reduction techniques were utilized for this examination: 1. Automated exposure control 2. Adjustment of the mA and/or kV according to patient size 3. Use of iterative reconstruction technique
--- NOTE | 2017-04-23 15:37 | RAD ---
Indication: Status post delivery, complaining of epigastric discomfort. Grayscale, color-flow and duplex Doppler evaluation of bilateral lower extremity deep venous systems was performed. FINDINGS: There is no evidence of right or left lower extremity DVT. Both lower extremity deep venous systems showed normal compressibility with normal response to augmentation and Valsalva. No fluid collection or mass is detected. IMPRESSION: No evidence of right or left lower extremity DVT.
--- NOTE | 2017-04-23 15:40 | RAD ---
CT study of the abdomen and pelvis with IV contrast Clinical indications: Abdominal pain. 2 days . Right upper quadrant mass. Technique: After IV infusion of 75 cc of Omnipaque 300, helical CT scanning of the abdomen and pelvis was performed. GI contrast was administered per mouth. PQRS Compliance Statement: One or more of the following individualized dose reduction techniques were utilized for this examination: 1. Automated exposure control 2. Adjustment of the mA and/or kV according to patient size 3. Use of iterative reconstruction technique Comparison: None available. Findings: The liver and spleen and pancreas are normal. There is pericholecystic fluid around the gallbladder. No gallbladder wall thickening is seen. No extra hepatic biliary ductal dilatation is seen. No adrenal mass is seen. Both kidneys are normal without hydronephrosis or hydroureter. The urinary bladder wall is smooth. Uterus is diffusely enlarged related to recent state and extends more towards the upper right abdomen and therefore may account for a palpable mass. No focal aneurysmal dilatation of the abdominal aorta is seen. No enlarged abdominal or pelvic lymphadenopathy is seen. The appendix is normal. No obstructive bowel pattern is seen. No free air or free fluid or mesenteric inflammatory change is seen. No lung base consolidation is evident. No osteolytic process is seen. IMPRESSION: Pericholecystic free fluid. No gallbladder wall thickening or radiopaque gallstones are seen otherwise. No extrahepatic biliary ductal dilatation is seen. Pericholecystic free fluid may be secondary to passive venous congestion from liver disease if there is a history of or clinical finding of such or could be seen with cholecystitis. Enlarged uterus related to recent state which does extend more towards the upper right side of the abdomen and could account for a palpable mass of the right upper quadrant of the abdomen.
[2017-04-23 17:45] VITALS: BP 114/74
[2017-04-23 21:15] VITALS: BP 110/76
[2017-04-24 05:45] VITALS: BP 112/70
--- NOTE | 2017-04-24 08:37 | PDOC2 ---
CONSULT Date of Consult Date of Consult DATE: 04/24/17 TIME: 08:30 Reason for Consult Reason for Consult: LUNG NODULE Identification/Chief Complaint Chief Complaint DYSPNEA Problems: History of Present Illness Reason for Visit: This is a 26-year-old female who has recently delivered a baby. It wasn't normal vaginal delivery. Patient was experiencing mild abdominal discomfort after the delivery. She states that the pain was also radiating to her chest and as a result she has difficulty in breathing. CT of the chest was performed with pulmonary embolism protocol. I have personally reviewed the CT chest. There was no evidence of pulmonary embolism. There was small amount of pericardial effusion and there was a 5 mm tiny right upper lobe nodule She says that she feels better she no longer has shortness of breath. smoker since age 16 , 1 pack per day.no chest pain today no wheezing. Current Medications Current Medications Current Medications Sodium Chloride (Normal Saline Flush) 3 ml QSHIFT PRN IV AFTER MEDS AND BLOOD DRAWS Last administered on 04/22/17 08:21; Start 04/21/17 at 19:15 Ringer's Solution 1,000 ml @ 125 mls/hr Q8H IV Last administered on 04/22/17 13:50; Start 04/21/17 at 19:14 Butorphanol Tartrate (Stadol) 2 mg PRN Q1HR PRN IV Severe labor pain; Start at 19:15 Fentanyl Citrate (Fentanyl 2ml Vial) 100 mcg PRN Q20MIN PRN IV Labor pain; Start 04/21/17 at 19:15 Acetaminophen (Tylenol) 650 mg PRN Q6HRS PRN PO MILD PAIN / TEMP; Start at 19:15; Stop 04/22/17 at 16:27; Status DC Ondansetron HCl (Zofran) 4 mg PRN Q4HRS PRN IV NAUSEA/VOMITING; Start 04/21/17 at 19:15; Stop 04/22/17 at 16:28; Status DC Al Hydroxide/Mg Hydroxide (Mylanta Plus Xs) 30 ml PRN Q4HRS PRN PO HEARTBURN / GAS; Start 04/21/17 at 19:15; Stop 04/22/17 at 16:28; Status DC Terbutaline Sulfate (Brethine) 0.25 mg 1X PRN PRN SQ SEE COMMENTS; Start at 19:15; Stop 04/22/17 at 19:14; Status DC Lidocaine HCl 30 ml 1X PRN PRN INJ SEE COMMENTS; Start 04/21/17 at 19:15; Stop 04/23/17 at 19:14; Status DC Ampicillin Sodium 2 gm/Sodium Chloride 100 ml @ 200 mls/hr 1X ONCE IV Last administered on 04/22/17 08:51; Start 04/21/17 at 19:30; Stop 04/21/17 at 19:59 ; Status DC Ampicillin Sodium 1 gm/Sodium Chloride 50 ml @ 100 mls/hr Q4H IV Last administered on 04/22/17 13:03; Start 04/21/17 at 23:30 Oxytocin/Sodium Chloride 500 ml @ 0 mls/hr CONT PRN IV SEE I/O RECORD Last administered on 04/22/17 08:51; Start 04/21/17 at 19:15 Oxytocin/Sodium Chloride 500 ml @ 0 mls/hr CONT PRN PRN IV Post delivery bleeding; Start 04/21/17 at 19:15 Ibuprofen (Motrin) 600 mg PRN Q6HRS PRN PO PAIN; Start 04/21/17 at 19:15 Dinoprostone (Cervidil) 10 mg 1X ONCE VG Last administered on 04/21/17 20:21 ; Start 04/21/17 at 19:15; Stop 04/21/17 at 19:22; Status DC Zolpidem Tartrate (Ambien) 5 mg PRN QHS PRN PO INSOMNIA Last administered on 00:01; Start 04/21/17 at 23:00; Stop 04/22/17 at 16:28; Status DC Ropivacaine 40 mg STK-MED ONCE .ROUTE ; Start 04/22/17 at 13:06; Stop 04/22/17 at 13:07; Status DC Ringer's Solution 1,000 ml @ 1,000 mls/hr Q1H IV ; Start 04/22/17 at 14:00; Stop 04/22/17 at 14:59; Status DC Ringer's Solution 500 ml @ 500 mls/hr 1X PRN PRN IV HYPOTENSION; Start at 13:45; Stop 04/23/17 at 13:44; Status DC Ephedrine Sulfate 10 mg PRN Q2MIN PRN IV IF SBP<90; Start 04/22/17 at 13:45 Phenylephrine HCl 0.05 mg PRN Q2MIN PRN IV SBP less than 90; Start 04/22/17 at 13:45 Naloxone HCl (Narcan) 0.04 mg PRN Q1MIN PRN IV SEE COMMENTS; Start 04/22/17 at 13:45 Fentanyl Citrate (Fentanyl 2ml Vial) 100 mcg PRN 1X PRN EPI FOR ANESTHESIA; Start 04/22/17 at 13:45; Stop 04/23/17 at 13:44; Status DC Bupivacaine HCl (Sensorcaine-Mpf 0.25%) 10 ml PRN 1X PRN EPI FOR ANESTHESIA; Start 04/22/17 at 13:45; Stop 04/23/17 at 13:44; Status DC Ropivacaine/ Fentanyl/NS 100 ml @ 12 mls/hr CONT PRN EP PAIN Last administered on 04/22/17 13:58; Start 04/22/17 at 13:45 Ondansetron HCl (Zofran) 4 mg PRN Q6HRS PRN IV NAUSEA/VOMITING; Start 04/22/17 at 13:45 Prochlorperazine Edisylate (Compazine) 5 mg PRN Q6HRS PRN IV NAUSEA/VOMITING; Start 04/22/17 at 13:45 Diphenhydramine HCl (Benadryl) 12.5 mg PRN Q2HR PRN IV ITCHING; Start 04/22/17 at 13:45; Stop 04/22/17 at 16:28; Status DC Diphenhydramine HCl (Benadryl) 12.5 mg PRN Q2HR PRN IV ITCHING; Start 04/22/17 at 13:45 Ropivacaine 40 mg PRN 1X PRN EPI SEE COMMENTS Last administered on 04/22/17t 13 :56; Start 04/22/17 at 13:45; Stop 04/22/17 at 13:58; Status DC Sodium Chloride (Normal Saline Flush) 10 ml QSHIFT PRN IV AFTER MEDS AND BLOOD DRAWS; Start 04/22/17 at 16:30 Oxytocin/Sodium Chloride 500 ml @ 62.5 mls/hr CONT PRN IV SEE I/O RECORD; Start 04/22/17 at 16:30; Stop 04/23/17 at 00:29; Status DC Acetaminophen (Tylenol) 650 mg PRN Q6HRS PRN PO MILD PAIN / TEMP; Start at 16:30 Ibuprofen (Motrin) 800 mg Q8HRS PO Last administered on 04/23/17 06:23; Start 04/22/17 at 22:00 Magnesium Hydroxide (Milk Of Magnesia) 2,400 mg PRN DAILY PRN PO CONSTIPATION; Start 04/22/17 at 16:30 Al Hydroxide/Mg Hydroxide (Mylanta Plus Xs) 30 ml PRN Q4HRS PRN PO HEARTBURN / GAS Last administered on 04/22/17 21:49; Start 04/22/17 at 16:30 Simethicone (Gas-X) 80 mg PRN AFTMEALHC PRN PO GAS / BLOATING; Start 04/22/17 at 16:30 Diphenhydramine HCl (Benadryl) 25 mg PRN Q6HRS PRN PO ITCHING; Start 04/22/17 at 16:30 Benzocaine (Americaine) 1 spray PRN QID PRN TP TOPICAL PAIN; Start 04/22/17 at 16:30 Phenyleph/Shark Oil/Min Oil/Petrol (Preparation H) 1 rekha PRN QID PRN RC RECTAL PAIN; Start 04/22/17 at 16:30 Hydrocortisone (Cortaid) 1 rkeha PRN QID PRN TP PERINEAL PAIN; Start 04/22/17 at 16:30 Ferrous Sulfate (Feosol) 325 mg BIDWMEALS PO Last administered on 04/23/17 17: 44; Start 04/23/17 at 08:00 Zolpidem Tartrate (Ambien) 5 mg PRN QHS PRN PO INSOMNIA, MAY REPEAT X1; Start 04/22/17 at 16:30 Info (Do NOT chart on this placeholder) 1 ea 1X PRN PRN MC SEE COMMENTS; Start 04/22/17 at 16:30 Acetaminophen/ Hydrocodone Bitart (Lortab 5/325) 1 tab PRN Q4HRS PRN PO MILD PAIN Last administered on 04/22/17 21:49; Start 04/22/17 at 16:30 Acetaminophen/ Hydrocodone Bitart (Lortab 5/325) 2 tab PRN Q4HRS PRN PO MODERATE PAIN, SEVERE PAIN; Start 04/22/17 at 16:30 Metformin HCl (Glucophage) 500 mg BIDWMEALS PO Last administered on 04/23/17 17:44; Start 04/22/17 at 17:00 Iohexol (Omnipaque 240 Mg/ml) 30 ml 1X ONCE PO ; Start 04/23/17 at 12:00; Stop 04/23/17 at 12:01; Status DC Iohexol (Omnipaque 300 Mg/ml) 75 ml 1X ONCE IV Last administered on 04/23/17 14:44; Start 04/23/17 at 12:00; Stop 04/23/17 at 12:01; Status DC Info (Do NOT chart on this entry -- for MONITORING) 1 each PRN DAILY PRN MC SEE COMMENTS; Start 04/23/17 at 12:00; Stop 04/25/17 at 11:59 Active Scripts Active Reported [place]stones (Pediatric Multivit Comb No.42) 1 Each Tab.chew 1 Each PO Metformin Hcl 500 Mg Tablet 500 Mg PO BIDWMEALS Allergies Allergies: Coded Allergies: No Known Drug Allergies (Unverified , 10/30/16) ROS Respiratory: YES: Shortness of breath Physical Exam General: Alert, Oriented X3 HEENT: Atraumatic Heart: Regular rate, Normal S1 Abdomen: Normal bowel sounds, Soft Extremities: No clubbing Skin: No rashes Neuro: Normal gait MUSCULOSKELETAL: No joint tenderness Vitals VITALS Vital Signs Date Time Temp Pulse Resp B/P (MAP) Pulse Ox O2 Delivery O2 Flow Rate FiO2 04/24/17 05:45 98.1 75 112/70 (84) 97 98.1 18 04/23/17 21:15 20 04/23/17 17:45 Room Air Labs Labs Laboratory Tests Test 04/22/17 09:20 04/23/17 04:25 Urine Collection Type Unknown Urine Color Rohini Urine Clarity Cloudy Urine pH 5.5 Urine Specific [place] >=1.030 Urine Protein Negative mg/dL (NEG-TRACE) Urine Glucose (UA) Negative mg/dL (NEG) Urine Ketones (Stick) Negative mg/dL (NEG) Urine Blood Small (NEG) Urine Nitrite Negative (NEG) Urine Bilirubin Small (NEG) Urine Urobilinogen Dipstick 1.0 mg/dL (0.2 mg/dL) Urine Leukocyte Esterase Moderate (NEG) Urine RBC 3-5 /HPF (0-2) Urine WBC 11-20 /HPF (0-4) Urine Squamous Epithelial Cells Many /LPF Urine Amorphous Sediment Present /HPF Urine Bacteria Many /HPF (0-FEW) Urine Mucus Marked /LPF White Blood Count 12.1 x10^3/uL (4.0-11.0) Red Blood Count 3.27 x10^6/uL (3.50-5.40) Hemoglobin 9.5 g/dL (12.0-15.5) Hematocrit 28.1 % (36.0-47.0) Mean Corpuscular Volume 86 fL (79-100) Mean Corpuscular Hemoglobin 29 pg (25-35) Mean Corpuscular Hemoglobin Concent 34 g/dL (31-37) Red Cell Distribution Width 13.5 % (11.5-14.5) Platelet Count 142 x10^3/uL (140-400) Neutrophils (%) (Auto) 76 % (31-73) Lymphocytes (%) (Auto) 12 % (24-48) Monocytes (%) (Auto) 10 % (0-9) Eosinophils (%) (Auto) 1 % (0-3) Basophils (%) (Auto) 1 % (0-3) Neutrophils # (Auto) 9.2 x10^3uL (1.8-7.7) Lymphocytes # (Auto) 1.5 x10^3/uL (1.0-4.8) Monocytes # (Auto) 1.2 x10^3/uL (0.0-1.1) Eosinophils # (Auto) 0.1 x10^3/uL (0.0-0.7) Basophils # (Auto) 0.1 x10^3/uL (0.0-0.2) Creatinine 0.5 mg/dL (0.6-1.0) Estimated GFR (Cockcroft-Gault) 150.3 Assessment/Plan Assessment/Plan IMPRESSION 1. Tiny 5 mm right upper lobe nodule. At her young age the likelihood of a malignancy is much less likely however because of her history of tobacco use I would recommend repeating a CT chest in 6 months. 2. No evidence of pulmonary embolism 3. Small pericardial effusion seen on on the CT chest. Echocardiogram has been ordered. RECOMMENDATIONS 1. Repeat CT chest in 6 months. This can be arranged through Dr. Álvarez's office. 2. Follow-up echocardiogram . this can also be done as an outpatient 3. Smoking cessation counseling was provided to the patient. 4.From pulmonary standpoint she could be discharged home. HUGH MARQUES MD Apr 24, 2017 08:37
--- NOTE | 2017-04-24 08:52 | PDOC3 ---
OB DISCHARGE SUMMARY DATE OF ADMISSION: 04/22/17 DATE OF DISCHARGE: 04/24/17 REASON FOR ADMISSION: Induction of labor PROCEDURES: Mgmt of OB Complications INTRAPARTUM PROCEDURES: Spontanous Vag Deliv OPERATIONS: Others (pericardial effusion, shortness of air) DISCHARGE DIAGNOSIS: Term Delivered DISCHARGE INFORMATION: Activity (as tolerated), Diet (regular), Medications ( Metformin, Ibuprofen, Hydrocodone/APAP), Instructions (Please follow up with Dr. Gauthier in 4-6 weeks, discuss getting ultrasound of your heart with Dr. Gauthier at son's next visit), Discharge to (Home) HOSPITAL COURSE Pt is a 26yo [id number] s/p 1)- continue Ibuprofen and Hydrocodone for pain 2)5mm RUL nodule- Pulmonary has seen. Repeat CT in 6 months 3)Pericardial effusion- ECHO unable to be performed this weekend. Discussed with pt to get scheduled with Dr. Gauthier since she is currently stable 4)GDM- continue Metformin until she sees FELISHA Sorensen MD Apr 24, 2017 08:52
[2017-04-24] MEDS: FERROUS SULFATE 325 MG TABLET. PO SCH (09:53)
[2017-04-24] MEDS: metFORMIN 500 MG TABLET PO SCH (09:53)
--- NOTE | 2017-04-24 09:56 | PDOC2 ---
BIPIN OLEARY DATA PROGRAMMER 04/24/17 0956: CARDIAC CONSULT DATE OF CONSULT Date of Consult DATE: 04/24/17 TIME: 09:52 REASON FOR CONSULT Reason for Consult: chest pain HISTORY OF PRESENT ILLNESS HISTORY OF PRESENT ILLNESS This is a 26-year-old female day 2 post . She reports abdominal / epigastric discomfort post delivery that radiated to her chest and beneath right breast. She reports this was increased with movement and ambulation. she has had no discomfort since yesterday. She was ruled out for PE but CT revealed a pericardial effusion. She denies any prior symptoms of chest discomfort, dyspnea. She denies palpitations, lighthededness or syncope. She denies problems with functional capacity. she is anxious to go home and wants to have echo as outpatient but agrees to stay if it can be done right away. PAST MEDICAL HISTORY Past Medical History gestational diabetes PAST SURGICAL HISTORY Past Surgical History: Tonsillectomy FAMILY HISTORY Family History diabetes, coronary artery disease, CVA SOCIAL HISTORY Social History 1ppd smoker, denies ETOH or illicit drugs CURRENT MEDICATIONS CURRENT MEDICATIONS Current Medications Medications (Trade) Dose Ordered Sig/Juanita Route PRN Reason Start Time Stop Time Status Last Admin Dose Admin Iohexol (Omnipaque 300 Mg/ml) 75 ml 1X ONCE IV 04/23/17 12:00 04/23/17 12:01 DC 04/23/17 14:44 ALLERGIES ALLERGIES: Coded Allergies: No Known Drug Allergies (Unverified , 10/30/16) ROS Review of System as per HPI or negative PHYSICAL EXAM General: Alert, Oriented X3, Cooperative, No acute distress HEENT: Atraumatic, EOMI, Mucous membr. moist/pink Lungs: Clear to auscultation, Normal air movement Heart: Regular rate, Normal S1, Normal S2 Abdomen: Normal bowel sounds Extremities: No cyanosis, Normal pulses, Other (trace edema) Neuro: Normal speech, Strength at 5/5 X4 ext, Cranial nerves 3-12 NL Psych/Mental Status: Mental status NL, Other (tearful, anxious) VITALS VITALS Vital Signs Date Time Temp Pulse Resp B/P (MAP) Pulse Ox O2 Delivery O2 Flow Rate FiO2 04/24/17 05:45 98.1 75 112/70 (84) 97 98.1 18 04/23/17 21:15 20 04/23/17 17:45 Room Air IMAGES IMAGES CT- Impression: 1. No evidence of pulmonary embolism or thoracic aortic dissection. 2. Pericardial effusion. 3. 5 mm right upper lobe nodule. LEUS - negative for DVT CT abd and pelvis IMPRESSION: Pericholecystic free fluid. No gallbladder wall thickening or radiopaque gallstones are seen otherwise. No extrahepatic biliary ductal dilatation is seen. Pericholecystic free fluid may be secondary to passive venous congestion from liver disease if there is a history of or clinical finding of such or could be seen with cholecystitis. Enlarged uterus related to recent state which does extend more towards the upper right side of the abdomen and could account for a palpable mass of the right upper quadrant of the abdomen. ASSESSMENT/PLAN ASSESSMENT/PLAN 1. Chest pain - atypical, PE ruled out. Small pericardial effusion noted and echo pending. 2. post day 2 - per PCP 3. gestational diabetes mellitus - per PCP Problems: BETTY ZHENG MD 04/24/17 1153: CARDIAC CONSULT ALLERGIES ALLERGIES: Coded Allergies: No Known Drug Allergies (Unverified , 10/30/16) ASSESSMENT/PLAN ASSESSMENT/PLAN Patient seen and examined The patient is feeling better and wishes to go home. day 2. Atypical chest pain. Pulmonary embolism ruled out. Small pericardial effusion on CT scan. Clinically stable. We'll proceed with echocardiogram today to evaluate the effusion. If no evidence of hemodynamic compromise the patient may go home later today for a cardiac viewpoint. Thank you for allowing us to participate in the care of your patient. Problems: BIPIN OLEARY APRN Apr 24, 2017 09:56 BETTY ZHENG MD Apr 24, 2017 11:53
[2017-04-24 11:40] VITALS: BP 122/78
--- NOTE | 2017-04-24 12:16 | CARD ---
APPROVED REPORT EXAM: Two-dimensional and M-mode echocardiogram with Doppler and color Doppler. Other Information Quality : GoodHR: 67bpm Rhythm : NSR INDICATION Pericardial effusion RISK FACTORS Obesity 2D DIMENSIONS RVDd3.7 (2.9-3.5cm)Left Atrium(2D)4.1 (1.6-4.0cm) IVSd1.2 (0.7-1.1cm)Aortic Root(2D)2.9 (2.0-3.7cm) LVDd4.6 (3.9-5.9cm)LVOT Diameter2.3 (1.8-2.4cm) PWd1.1 (0.7-1.1cm)LVDs3.2 (2.5-4.0cm) FS (%) 29.1 %SV53.9 ml LVEF(%)56.0 (>50%) Aortic Valve AoV Peak Ender.142.1cm/sAoV VTI32.0cm AO Peak GR.8.1mmHgLVOT Peak Ender.110.2cm/s AO Mean GR.4mmHgAVA (VMAX)3.23cm2 Mitral Valve MV E Vefbxrqn256.1cm/sMV E Peak Gr.7mmHg MV DECEL [id number] A Czpyoiaj83.4cm/s MV E Mean Gr.2mmHgE/A Ratio2.0 MV A [id number] Pulmonary Valve PV Peak Tdduzbjs81.9cm/s Tricuspid Valve TR P. Dlgravoc311ft/sTR Peak Gr.24mmHg Pulmonary Vein S1 Qanvadqh80.3cm/sD2 Idjzhgdd88.5cm/s PVa [id number] LEFT VENTRICLE The left ventricle is normal size. There is mild concentric left ventricular hypertrophy. The left ve ntricular systolic function is normal and the ejection fraction is within normal range. The Ejection Fraction is 55-60%. There is normal LV segmental wall motion. The left ventricular diastolic function and filling is normal for age. RIGHT VENTRICLE The right ventricle is normal size. There is normal right ventricular wall thickness. The right ventr icular systolic function is normal. ATRIA The left atrium is borderline dilated. The right atrium size is normal. The interatrial septum is int act with no evidence for an atrial septal defect or patent foramen ovale as noted on 2-D or Doppler i maging. AORTIC VALVE The aortic valve is trileaflet. Doppler and Color Flow revealed trace aortic regurgitation. There is no significant aortic valvular stenosis. MITRAL VALVE The mitral valve is normal in structure and function. There is no evidence of mitral valve prolapse. There is no mitral valve stenosis. Doppler and Color Flow revealed no mitral valve regurgitation note d. TRICUSPID VALVE Doppler and Color Flow revealed mild tricuspid regurgitation. The pulmonary artery systolic pressure is estimated at 27 mmHg. PULMONIC VALVE Doppler and Color Flow revealed mild pulmonic valvular regurgitation. There is no pulmonic valvular s tenosis. GREAT VESSELS The aortic root is normal in size. The ascending aorta is normal in size. The pulmonary artery is nor mal. The IVC is normal in size and collapses >50% with inspiration. PERICARDIAL EFFUSION There is a trace posterior pericardial effusion with no hemodynamic significance. Critical Notification Critical Value: No <Conclusion> The left ventricle is normal size. The left ventricular systolic function is normal and the ejection fraction is within normal range. The Ejection Fraction is 55-60%. There is mild concentric left ventricular hypertrophy. There is no significant aortic valvular stenosis. Doppler and Color Flow revealed trace aortic regurgitation. Doppler and Color Flow revealed no mitral valve regurgitation noted. Doppler and Color Flow revealed mild tricuspid regurgitation. The pulmonary artery systolic pressure is estimated at 27 mmHg. Doppler and Color Flow revealed mild pulmonic valvular regurgitation. There is a trace posterior pericardial effusion with no hemodynamic significance.
== END 2017-04-24 11:47 | disposition home or self-care (01) | DRG 775 ==
LOC: 3 SO LND 19:04 → 3 NORTH 04-22 20:40
PROVIDERS: ADMIT Family Medicine; ATTEND Family Medicine
PROC: 10E0XZZ Delivery of Products of Conception, External Approach (ICD-10-PCS; principal; 2017-04-21)
PROC: 3E0S3CZ (ICD-10-PCS; 2017-04-21)
PROC: 00HU33Z Insertion of Infusion Device into Spinal Canal, Percutaneous Approach (ICD-10-PCS; 2017-04-21)
PROC: 0HQ9XZZ Repair Perineum Skin, External Approach (ICD-10-PCS; 2017-04-21)
DX: O24.420 Gestational diabetes mellitus in childbirth, diet controlled (principal); I31.3 Pericardial effusion (noninflammatory); O99.52 Diseases of the respiratory system complicating childbirth; R91.1 Solitary pulmonary nodule; R09.02 Hypoxemia; R19.00 Intra-abdominal and pelvic swelling, mass and lump, unspecified site; O75.89 Other specified complications of labor and delivery; O70.0 First degree perineal laceration during delivery; O99.334 Smoking (tobacco) complicating childbirth; F17.210 Nicotine dependence, cigarettes, uncomplicated; Z71.6 Tobacco abuse counseling; Z37.0 Single live birth; Z3A.39 39 weeks gestation of pregnancy; Z90.89 Acquired absence of other organs; Z82.3 Family history of stroke; Z82.49 Family history of ischemic heart disease and other diseases of the circulatory system; Z83.3 Family history of diabetes mellitus
CPT/HCPCS: 36415; 71275; 74177; 81001; 82565; 82803; 82947; 85027; 86593; 86850; 86900; 86901; 87086; 87186; 93306; 93970; C1887; J0290; J2590; J2795; J7120; Q9967